=== PATIENT | female | born 1955 | race Caucasian/White ===

== ENCOUNTER 2017-11-12 16:54 | Inpatient (IN) | payer BC, MEDICAID ==
[2017-11-12] MEDS: NORepinephrine 8MG/250 ML (PMX 250 ML IV (20:26)
[2017-11-12] MEDS ORDERED: NA BICARBONATE 8.4% 50 ML SYG (23:43)
[2017-11-12 23:47] LABS: Allen Test ACCEPTAB; Arterial Base Excess -16.3 mmol/L (-3.0-3); Arterial Blood Gas Oxygen Sat 89.5 mmHG (95.0-98.0); Arterial COHb 0.7 % (0.0-3.0); Arterial Fraction of Oxyhgb 88.6 % (93.0-99.0); Arterial HCO3 15.8 mmol/L (22.0-26.0); Arterial MetHb 0.3 % (0.0-1.5); Arterial Total Hemglobin 11.2 g/dl (12.0-18.0); Arterial pCO2 71.2 mmhg (35-45); MODE VENT - PC; Site Right Radial
[2017-11-13] MEDS: NA BICARBONATE 8.4% 50 ML SYG IV (00:04)
[2017-11-13] MEDS: VASOPRESSIN 60 UNIT in DEXTROSE 5% 60 ML IV ×2 (00:13→11:39)
[2017-11-13] MEDS ORDERED: PHENYLephrine 20MG IN 250 ML 250 ML IV (00:30)
[2017-11-13] MEDS: SOD CHLORIDE 0.9% 1,000 ML IV (00:38)
[2017-11-13] MEDS: NORepinephrine 8MG/250 ML (PMX 250 ML IV (02:29)
[2017-11-13] MEDS ORDERED: PHENYLephrine 40 MG in SOD CHLORIDE 0.9% 496 ML IV (02:51)
[2017-11-13] MEDS: PHENYLephrine 40 MG in SOD CHLORIDE 0.9% 496 ML IV (03:17)
[2017-11-13] MEDS ORDERED: PHENYLephrine 40 MG in DEXTROSE 5% 496 ML IV (03:40)
[2017-11-13] MEDS: PANTOPRAZOLE 40 MG INJ IV (06:55)
[2017-11-13] MEDS: DEXTROSE 5%-0.9% NACL 1,000 ML IV ×4 (08:40→21:10)
[2017-11-13] MEDS ORDERED: VANCOMYCIN IV PER PHARMACY XX (09:30)
[2017-11-13] MEDS: PHENYLephrine 40 MG in DEXTROSE 5% 496 ML IV ×6 (09:38→23:14)
[2017-11-13 10:31] LABS: ABNORMAL IP MESSAGE 1; HEMATOCRIT 37.5 % (37.0-47.0); MEAN CORPUSCULAR VOLUME 98.7 fl (82.0-101.0); RED CELL DISTRIBUTION WIDTH 14.6 % (11.5-14.5)
[2017-11-13 10:50] LABS: ANION GAP 24 (8-16); BLOOD UREA NITROGEN 26 mg/dl (7-20); CALCIUM 7.5 mg/dl (8.4-10.2); CARBON DIOXIDE 10 mmol/L (21-31); CHLORIDE 104 mmol/L (97-110); SODIUM 133 mmol/L (135-144)
[2017-11-13 10:55] LABS: GLUCOSE 46 mg/dl (70-220)
[2017-11-13 11:04] LABS: ADD MAN DIFF? YES; HEMOGLOBIN 10.9 g/dl (12.0-16.0); MEAN CORPUSCULAR HEMOGLOBIN 28.7 pg (29.0-33.0); MEAN CORPUSCULAR HGB CONC 29.1 g/dl (32.0-37.0); MEAN PLATELET VOLUME 9.6 fl (7.4-10.4); NUCLEATED RED BLOOD CELLS% 0.2 /100WBC (0.0-0.0); PLATELET COUNT 235 10^3/UL (140-415); POSITIVE DIFF @See below
[2017-11-13 11:04] LABS: WHITE BLOOD COUNT 16.2 10^3/ul (4.8-10.8)
[2017-11-13] MEDS ORDERED: DEXTROSE 50% 50 ML SYRINGE (11:06)
[2017-11-13] MEDS: VANCOMYCIN 750 MG in DEXTROSE 5% 150 ML IVPB (11:09)
[2017-11-13] MEDS: DEXTROSE 50% 50 ML SYRINGE IV (11:42)
[2017-11-13] MEDS: PIPER-TAZO 2.25 GM (PMX) 50 ML IVPB ×2 (12:37→19:00)
[2017-11-13 12:52] LABS: ACANTHOCYTES 1+ (0-0); ANISOCYTOSIS 1+ (0-0); BAND NEUTROPHILS #M 4.6 10^3/ul (0.0-0.6); BAND NEUTROPHILS % (M) 29 % (0-4); BURR CELLS 2+ (0-0); ECHINOCYTOSIS 2+ (0-0); GIANT THROMBO% (M) 3 % (0-0); LYMPHOCYTES #M 1.7 10^3/ul (0.8-2.9); LYMPHOCYTES % (M) 11 % (15-51); METAMYELOCYTES #M 0.9 10^3/ul (0.0-0.0); METAMYELOCYTES %M 6 % (0-0); MONOCYTE #M 0.8 10^3/ul (0.3-0.9); MONOCYTES % (M) 5 % (0-11); MYELOCYTES #M 0.4 10^3/ul (0.0-0.0); MYELOCYTES % (M) 3 % (0-0); OVALOCYTES 1+ (0-0); POIKILOCYTOSIS 3+ (0-0); POLYCHROMASIA 1+ (0-0); REACTIVE LYMPHOCYTES #M 0.6 10^3/ul (0.0-0.0); REACTIVE LYMPHOCYTES% (M) 4 % (0-0); SCHISTOCYTES 1+ (0-0); SEG NEUT #M 7.4 10^3/ul (1.6-7.5); SEGMENTED NEUTROPHILS (M) % 41 % (39-77); SMUDGE%M 7 % (0-0)
[2017-11-13] MEDS: DEXTROSE 5% IVPB (23:18)
[2017-11-13] MEDS: VANCOMYCIN IVPB (23:18)
[2017-11-14] MEDS: PIPER-TAZO 2.25 GM (PMX) 50 ML IVPB ×2 (00:44→05:55)
[2017-11-14] MEDS: PHENYLephrine 40 MG in DEXTROSE 5% 496 ML IV ×3 (02:38→05:48)
[2017-11-14] MEDS: VASOPRESSIN 60 UNIT in DEXTROSE 5% 60 ML IV (03:40)
[2017-11-14] MEDS: PANTOPRAZOLE 40 MG INJ IV (05:55)
[2017-11-14] MEDS: SOD CHLORIDE 0.9% 1,000 ML IV (06:14)
[2017-11-14] MEDS ORDERED: LORAZEPAM 2 MG INJ IV (06:30)
[2017-11-14] MEDS ORDERED: ALBUTEROL/IPRATROPIUM (NEB) 3 ML AMP HHN (06:30)
[2017-11-14] MEDS ORDERED: ACETAMINOPHEN 325 MG TAB PO (06:30)
[2017-11-14] MEDS ORDERED: ACETAMINOPHEN 500 MG TAB PO (06:30)
[2017-11-14] MEDS ORDERED: ONDANSETRON 4 MG INJ IV (06:30)
[2017-11-14] MEDS ORDERED: morphine 2 MG INJ IV ×2 (06:30)
[2017-11-14] MEDS ORDERED: FENTAnyl 50 MCG/ML VIAL IV (06:30)
[2017-11-14] MEDS ORDERED: HYDROmorphONE 0.5 MG/0.5 ML SYG IV (06:30)
[2017-11-14] MEDS ORDERED: ARTIFICIAL TEARS 15 ML OPH BOTH EYES (06:30)
[2017-11-14] MEDS ORDERED: DIMETHICONE STICK TOP (06:30)
[2017-11-14] MEDS: morphine (DRIP) 100 MG/100 ML 100 ML IV (07:11)
== END 2017-11-14 08:57 | disposition expired | DRG 871 ==
LOC: ICU 16:54
PROC: 5A1945Z Respiratory Ventilation, 24-96 Consecutive Hours (ICD-10-PCS; principal; 2017-11-12)
PROC: 3E043XZ Introduction of Vasopressor into Central Vein, Percutaneous Approach (ICD-10-PCS; 2017-11-12)
DX: A41.9 Sepsis, unspecified organism (principal); R65.21 Severe sepsis with septic shock; R53.2 Functional quadriplegia; G92 Toxic encephalopathy; J18.9 Pneumonia, unspecified organism; E43 Unspecified severe protein-calorie malnutrition; G12.21 Amyotrophic lateral sclerosis; Z99.11 Dependence on respirator [ventilator] status; J96.11 Chronic respiratory failure with hypoxia; E87.4 Mixed disorder of acid-base balance; Z68.1 Body mass index [BMI] 19.9 or less, adult; D64.9 Anemia, unspecified; H91.90 Unspecified hearing loss, unspecified ear; Z87.891 Personal history of nicotine dependence; Z93.0 Tracheostomy status; Y95 Nosocomial condition; Z93.1 Gastrostomy status; Z51.5 Encounter for palliative care
CPT/HCPCS: 36600; 71045; 80048; 82803; 82962; 85025; 87081; 94002; 94003